=== PATIENT | male | born 1975 | race Caucasian/White ===

== ENCOUNTER 2024-07-29 09:25 | Emergency (ER) | payer BC ==
[~2024-07-29] VITALS: Ht 182.9 cm; Wt 79.4 kg
[2024-07-29 09:32] VITALS: BP_SYST 131; PULSE 87; RESP 18; TEMP 97.9; O2SAT 98
[2024-07-29] MEDS: LIDOCAINE 1% 10 MG/ML, 20 ML MDV INJ ONE (10:13)
[2024-07-29] MEDS: BACITRACIN 1 GM OINT TP ONE (10:32)
[2024-07-29 10:54] VITALS: BP_SYST 131; PULSE 87; RESP 18; TEMP 97.9; O2SAT 98
== END 2024-07-29 10:53 | disposition home or self-care (01) ==
LOC: SED 09:25
DX: S61.212A Laceration without foreign body of right middle finger without damage to nail, initial encounter (principal); S61.214A Laceration without foreign body of right ring finger without damage to nail, initial encounter; W25.XXXA Contact with sharp glass, initial encounter; Y93.89 Activity, other specified; Y92.89 Other specified places as the place of occurrence of the external cause; Y99.8 Other external cause status
CPT/HCPCS: 99282; 99283; J2001

== ENCOUNTER 2024-08-05 14:26 | Emergency (ER) | payer BC ==
[~2024-08-05] VITALS: Ht 177.8 cm; Wt 77.1 kg
[2024-08-05 14:49] VITALS: BP_SYST 109; PULSE 74; RESP 22; TEMP 98.3; O2SAT 98
== END 2024-08-05 17:45 | disposition left against medical advice (07) ==
LOC: SED 14:26
DX: S61.411D Laceration without foreign body of right hand, subsequent encounter (principal); Z53.21 Procedure and treatment not carried out due to patient leaving prior to being seen by health care provider; X58.XXXD Exposure to other specified factors, subsequent encounter